=== PATIENT | female | born 1995 | race Caucasian/White ===

== ENCOUNTER → 2016-11-24 | Outpatient (CLI) | payer OTHER | LOC: COL.PUL 09:19 | DX: R06.00 Dyspnea, unspecified (principal); R05 Cough | CPT/HCPCS: J7674 ==

== ENCOUNTER 2018-04-21 17:33 | Emergency (ER) | payer OTHER ==
[~2018-04-21] VITALS: Ht 160 cm; Wt 70.0 kg
[2018-04-21 17:49] VITALS: TEMP 98.6
[2018-04-21] MEDS ORDERED: PRENATAL FORMU1 EAC3 PO (18:03)
[2018-04-21 18:28] LABS: BASO % 0.4 % (0.0-2.0); EOS % 0.1 % (0-4.0); GRAN % 60.9 % (42.2-75.2); HEMOGLOBIN 12.9 g/dl (12.5-16.0); LYMPH # 2.4 (1.2-3.4); LYMPH % 29.3 % (20.0-51.0); MEAN CELL VOLUME 88 fl (80.0-100.0); MEAN CORPUSCULAR HEMOGLOBIN 32 pg (27.0-31.0); MEAN CORPUSCULAR HGB CONC 36 g/dl (33.0-37.0); MEAN PLATELET VOLUME 9.3 fl (7.4-10.4); MONO # 0.7 (0.1-0.6); MONO % 8.9 % (1.7-9.3); PLATELET COUNT 282 K/mm3 (130-400); RED BLOOD COUNT 4.07 M/mm3 (4.10-5.30); REDCELL DISTRIBUTION WIDTH-CV 12.5 % (11.5-14.5)
[2018-04-21 18:29] LABS: HEMATOCRIT 35.9 % (37.0-47.0)
[2018-04-21 18:30] LABS: COLLECTION METHOD CLEAN CATCH
[2018-04-21 18:38] LABS: ALANINE AMINOTRANSFERASE 19 U/L (9-52); ALBUMIN 3.7 gm/dL (3.5-5.0); ALKALINE PHOSPHATASE 98 U/L (50-136); ANION GAP 12 mmol/L (7-16); AST,SGOT 19 U/L (15-37); BILIRUBIN,TOTAL 0.3 mg/dL (0.0-1.0); BLOOD UREA NITROGEN 7 mg/dL (7-17); CARBON DIOXIDE 19 mmol/L (22-30); CHLORIDE 100 mmol/L (98-107); GLUCOSE 304 mg/dL (74-106); POTASSIUM 3.6 mmol/L (3.4-5.0); SODIUM 131 mmol/L (137-145); TOTAL PROTEIN 7.3 gm/dL (6.4-8.2)
[2018-04-21 18:40] LABS: PH 5 (5-8); SQUAMOUS EPITHELIAL 0-2 /hpf; URINE APPEARANCE Clear; URINE BACTERIA Rare /hpf; URINE BILIRUBIN Negative (NEGATIVE); URINE BLOOD Negative (NEGATIVE); URINE COLOR Yellow; URINE GLUCOSE 3+ (NEGATIVE); URINE KETONE 2+ (NEGATIVE); URINE LEUKOCYTE ESTERASE Negative (NEGATIVE); URINE NITRATE Negative (NEGATIVE); URINE PROTEIN(semi-quant) Negative (NEGATIVE); URINE RBC 0-2 /hpf; URINE UROBILINOGEN Negative (NEGATIVE)
--- NOTE | 2018-04-21 19:37 | NUR ---
EFM STRIP REVIEWED BY THIS NURSE. PT 28 WK GESTATION. STATES FEELS GOOD MOVEMENT. NO CONTRACTIONS NOTED ON EFM. PT DENIES FEELING THEM. DR. HUNG UPDATED ON STRIP.
[2018-04-21 19:50] LABS: ACETONE,SERUM SMALL
[2018-04-21 20:16] LABS: MAGNESIUM 1.8 mg/dL (1.6-2.3); PHOSPHOROUS 3.6 mg/dL (2.5-4.5)
[2018-04-21] MEDS ORDERED: NOVLOG SQ ×3 (21:39→21:55)
[2018-04-21] MEDS ORDERED: LEVEMIR100 U/ML SQ ×3 (21:39→21:55)
[2018-04-21 23:21] VITALS: BP 114/70; PULSE 74
== END 2018-04-21 23:25 | disposition home or self-care (01) ==
LOC: COL.ER 17:33
PROVIDERS: Physician Assistant
DX: E11.65 Type 2 diabetes mellitus with hyperglycemia (principal)
CPT/HCPCS: J1815; J7030

== ENCOUNTER → 2018-04-27 | Outpatient (CLI) | payer OTHER ==
[~2018-04-27] MED LIST: LEVEMIR100 U/ML SQ; NOVLOG SQ; PRENATAL FORMU1 EAC3 PO
== END ==
LOC: SUN.DIA 09:49
DX: E10.9 Type 1 diabetes mellitus without complications (principal); Z79.4 Long term (current) use of insulin
CPT/HCPCS: G0108

== ENCOUNTER → 2018-05-02 | Outpatient (CLI) | payer OTHER | LOC: SUN.DIA 10:25 | DX: E10.9 Type 1 diabetes mellitus without complications (principal); Z79.4 Long term (current) use of insulin | CPT/HCPCS: G0108 ==

== ENCOUNTER → 2018-05-09 | Outpatient (CLI) | payer OTHER | LOC: SUN.DIA 10:57 | DX: E10.9 Type 1 diabetes mellitus without complications (principal); Z79.4 Long term (current) use of insulin | CPT/HCPCS: G0108 ==

== ENCOUNTER 2018-07-02 16:50 | Inpatient (IN) | payer OTHER ==
[~2018-07-02] VITALS: Ht 160 cm; Wt 83.6 kg
--- NOTE | 2018-07-02 19:10 | NUR ---
HERE WITH SPOUSE- CYTOTEC INDUCTION
[2018-07-02 19:30] VITALS: BP 137/81; PULSE 85; TEMP 99.4
--- NOTE | 2018-07-02 20:20 | NUR ---
ACCUCHECK 71
[2018-07-02 20:30] VITALS: BP 143/80; PULSE 78
[2018-07-02 20:53] LABS: BASO # 0.1 (0.0-0.2); BASO % 0.4 % (0.0-2.0); EOS % 0.3 % (0-4.0); GRAN # 7.5 (1.4-6.5); GRAN % 61.5 % (42.2-75.2); HEMOGLOBIN 12.4 g/dl (12.5-16.0); LYMPH # 3.4 (1.2-3.4); MEAN CELL VOLUME 91 fl (80.0-100.0); MEAN CORPUSCULAR HEMOGLOBIN 31 pg (27.0-31.0); MEAN CORPUSCULAR HGB CONC 34 g/dl (33.0-37.0); MEAN PLATELET VOLUME 9.9 fl (7.4-10.4); MONO # 1.2 (0.1-0.6); MONO % 9.4 % (1.7-9.3); PLATELET COUNT 293 K/mm3 (130-400); REDCELL DISTRIBUTION WIDTH-CV 12.6 % (11.5-14.5)
[2018-07-02 20:57] LABS: HEMATOCRIT 36.5 % (37.0-47.0)
[2018-07-02 21:00] VITALS: BP 130/78; PULSE 68
[2018-07-02 22:00] VITALS: BP 122/71; PULSE 82
[2018-07-02 22:10] VITALS: BP 140/79; PULSE 82; TEMP 98.2
[2018-07-02 23:10] VITALS: BP 126/58; PULSE 75
[2018-07-03] VITALS (60 sets, daily range): BP systolic 102–154; BP diastolic 54–91; PULSE 58–100; TEMP 97.5–98.7
--- NOTE | 2018-07-03 00:59 | NUR ---
CX VERY POSTERIOR- UNABLE TO EXAMINE. PT DENIES CTXS OR ABD PAIN.ACCUCHECK 108.UP TO VOID. 0050 CYTOTEC #2 TAKEN PO
--- NOTE | 2018-07-03 04:30 | NUR ---
SINGLE LATE DECEL TO 72 BPM STARTING MIDWAY IN CTX SLOW RETURN TO BASE60 SEC AFTER END OF CTX. WITH REPOSITONING. O2 / MASK PLACED. LR HUNG - BOLUS STARTED.
--- NOTE | 2018-07-03 04:59 | NUR ---
9121 ACCUCHECK 79
--- NOTE | 2018-07-03 05:36 | NUR ---
UNABLE TO REACH CERVIX DUE TO PT DISCOMFORT, CLOSES LEGS WHILE BEING EXAMINED - VERY POSTERIOR CERVIX
--- NOTE | 2018-07-03 08:50 | NUR ---
Dr. Del Valle at bedside. SVE per provider /3. Discusses belle bulb insertion. Pt agrees to POC. Belle bulb placement attempted by Dr. Del Valle. Unable to place at this time. Provider with AROM attempt. Pt does not tolerate well. 0855-AROM of clear fluid performed by Dr. Del Valle. Pericare performed. Pt updated on POC. No questions or concerns at this time.
--- NOTE | 2018-07-03 13:50 | NUR ---
Lorelei Early at bedside for epidural placement. Pt sitting upright. Difficulty tracing FHR due to maternal postion. RN at bedside adjusting monitors. FHR audible. 1401-Single shot administered by Lorelei Early CRNA. No adverse effects noted. See anesthesia record. 1404-Test dose administered by Lorelei Early CRNA. No adverse effects noted. See anesthesia record. 1411-Pt repositioned WL. Updated on POC. Safety reviewed. Call light within reach. No questions or concerns at this time.
--- NOTE | 2018-07-03 14:25 | NUR ---
Late deceleration noted. RN at bedside. Pt repositioned. Pitocin shut off. LR bolus infusing. Decline in BP noted. Ephedrine 10mg given IV. See emar. O2 applied at 10L via simple mask. FHR returns to [address] Del Valle notified. See physician notification. 1440-Delacruz catheter placed with return of clear urine. SVE as noted. Pt tolerated well. 1455-Decelerations noted after ctx. RN at bedside. Pt repostioned. LR bolus infusing. Second dose of ephedrine given. See EMAR. O2 applied at 10L via simple mask. 1500-FHR returns to 150 baseline with no decelerations in FHR.
--- NOTE | 2018-07-03 15:10 | NUR ---
Decelerations noted. RN at bedside. Repositions PT. Pitocin at 12mU. 1515-Decelerations continue. Pitocin shut off. Decline in BP. Ephedrine 10mg give. See emar.
--- NOTE | 2018-07-03 16:20 | NUR ---
Physician at bedside. Discusses late decelerations and potential for csection. Orders to increase pitocin. If FHR nonreasuring will need . Pt agrees to POC. No questions or concerns at this time.
--- NOTE | 2018-07-03 16:47 | NUR ---
Dr. Del Valle at bedside. Reviews FHR strip. Decision for . Pt agrees to POC. Skin prep performed. 1656-Pt taken off monitors to OR via bed.
--- NOTE | 2018-07-03 21:50 | NUR ---
Pt up to the wheelchair with assist x2 for visit to nursery.
[2018-07-04 00:30] VITALS: BP 114/70; PULSE 78
--- NOTE | 2018-07-04 00:30 | NUR ---
Pt took her own blood sugar - 174. No insulin given per sliding scale.
--- NOTE | 2018-07-04 03:30 | NUR ---
Pt took her own blood sugar - 134. No insulin given per sliding scale order.
[2018-07-04 05:15] VITALS: BP 138/87; PULSE 75
--- NOTE | 2018-07-04 07:30 | NUR ---
Patient took her blood sugar using her own glucometer; blood sugar is 117.
[2018-07-04 08:30] VITALS: BP 131/84; PULSE 79; TEMP 98.7
[2018-07-04] MEDS ORDERED: MOTRIN 800800 MG/TAB PO (09:13)
[2018-07-04] MEDS ORDERED: PERCOCET 325 MG1 TA2 PO (09:13)
--- NOTE | 2018-07-04 10:47 | NUR ---
Initial visit; [employer] welcomed patient and offered God's blessings.
[2018-07-04 12:30] VITALS: BP 126/84; PULSE 82; TEMP 98
--- NOTE | 2018-07-04 13:30 | NUR ---
Patient takes her blood sugar using her own glucomer, blood sugar is 95.
--- NOTE | 2018-07-04 16:00 | NUR ---
Patient finished eating at 1400. Blood sugar now is 114.
== END 2018-07-04 16:05 | disposition home or self-care (01) | DRG 788 ==
LOC: LDR 16:50 → OB 18:55 → LDR 18:55 → OB 07-03 20:08
PROVIDERS: ADMIT Obstetrics & Gynecology
PROC: 3E0P7VZ Introduction of Hormone into Female Reproductive, Via Natural or Artificial Opening (ICD-10-PCS; 2018-07-02)
PROC: 10D00Z1 Extraction of Products of Conception, Low, Open Approach (ICD-10-PCS; principal; 2018-07-03)
PROC: 10907ZC Drainage of Amniotic Fluid, Therapeutic from Products of Conception, Via Natural or Artificial Opening (ICD-10-PCS; 2018-07-03)
DX: O24.424 Gestational diabetes mellitus in childbirth, insulin controlled (principal); Z3A.38 38 weeks gestation of pregnancy; Z37.0 Single live birth; O76 Abnormality in fetal heart rate and rhythm complicating labor and delivery; O62.2 Other uterine inertia
CPT/HCPCS: J0690; J1885; J2210; J2270; J2370; J2405; J2590; J2795; J7120